=== PATIENT | female | born 1990 | race Hispanic/Latino ===

== ENCOUNTER 2018-10-04 21:10 | Emergency (ER) | payer BC ==
[2018-10-04 22:05] VITALS: BP 121/79; PULSE 69; RESP 16; TEMP 98.1; O2SAT 100
--- NOTE | 2018-10-04 22:51 | ED PDOC ---
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 ) Past Medical History Vital Signs: Last Vital Signs Temp 98.1 F 10/04/18 22:02 Pulse 69 10/04/18 22:02 Resp 16 10/04/18 22:02 BP 121/79 10/04/18 22:02 Pulse Ox 100 10/04/18 22:02 - Medical History PMH: No Chronic Diseases - Surgical History Surgical History: No Surg Hx - Family History Family History: States: Unknown Family Hx - Home Medications Home Medications: Ambulatory Orders Medication Instructions Recorded No Known Home Med 02/02/15 - Allergies Allergies/Adverse Reactions: Allergies Allergy/AdvReac Type Severity Reaction Status Date / Time No Known Allergies Allergy Verified 10/04/18 22:02 Review of Systems Musculoskeletal: Positive for: Other (left ankle pain). Negative for: Leg Pain Skin: Negative for: Bruising Neurological: Negative for: Numbness Physical Exam - Physical Exam Appears: Positive for: Well, No Acute Distress Skin: Positive for: Normal Color, Warm, Dry Extremity: Positive for: Tenderness (Mild tenderness and swelling over lateral malleolus, No swelling or tenderness over medial malleolus. FROM. Toes warm, mobile.) - ECG O2 Sat by Pulse Oximetry: 100 Medical Decision Making Medical Decision Making: Pt. 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 Ankle x-ray: no fx; as read by me Ankle immobilized with mesfin wrap, aircast, with good distal perfusion post splint. Crutches given with instruction. Pt. flying to [place] tomorrow evening, RICE recommended and dvt precautions given. Disposition - Clinical Impression Clinical Impression: Ankle injury - Patient ED Disposition Is Patient to be Admitted: No Counseled Patient/Family Regarding: Studies Performed, Diagnosis, Need For Followup - Disposition Referrals: Praveen Herman III, MD [Staff Provider] - Disposition: Routine/Home Disposition Time: 22:52 Condition: STABLE Instructions: Ankle Sprain (DC)
--- NOTE | 2018-10-05 09:44 | RAD ---
Date of service: 10/04/2018 PROCEDURE: Left Ankle Radiographs. HISTORY: trauma COMPARISON: None available. FINDINGS: BONES: No fracture. Probable tiny incidental posterior calcaneal bone island present JOINTS: Normal. No osteoarthritis. Ankle mortise maintained. Talar dome intact SOFT TISSUES: Lateral perimalleolar soft tissue swelling some anterior tibiotalar joint swelling as well OTHER FINDINGS: None. IMPRESSION: No fracture or dislocation is suggested. Mild soft tissue swelling in the area of interest is noted.
== END 2018-10-05 00:09 | disposition home or self-care (01) ==
LOC: H.ER 21:10
DX: S99.912A Unspecified injury of left ankle, initial encounter (principal); X50.9XXA Other and unspecified overexertion or strenuous movements or postures, initial encounter; Y92.89 Other specified places as the place of occurrence of the external cause